=== PATIENT | male | born 1965 | race Caucasian/White ===

== ENCOUNTER 2016-10-08 10:43 | Inpatient (IN) | payer BC ==
[2016-10-04 10:24] LABS: BASOPHILS 0.6 %; BASOPHILS ABSOLUTE 0.06 10/3/uL (0.0-0.16); EOSINOPHILS 1.9 %; EOSINOPHILS ABSOLUTE 0.18 10/3/uL (0.0-0.53); HEMATOCRIT 49.8 % (40.0-51.0); HEMOGLOBIN 17.1 g/dL (13.6-17.8); IMMATURE GRANULOCYTES 0.7 %; IMMATURE GRANULOCYTES ABSOLUTE 0.07 10/3/uL (0.0-0.11); LYMPHOCYTES 30.5 %; LYMPHOCYTES ABSOLUTE 2.96 10/3/uL (0.67-4.30); MEAN CORPUS HGB CONC 34.3 g/dL (32.0-36.0); MEAN CORPUSCULAR HEMOGLOB 31.5 pg (26.0-34.0); MEAN CORPUSCULAR VOLUME 91.7 fL (80-100); MEAN PLATELET VOLUME 9.5 fL (9.2-13.0); MONOCYTES 8.8 %; MONOCYTES ABSOLUTE 0.86 10/3/uL (0.21-1.20); NEUTROPHILS 57.5 %; NEUTROPHILS ABSOLUTE 5.59 10/3/uL (2.02-8.40); PLATELET COUNT 261 10/3/uL (150-400); RBC DISTRIBUTION WIDTH 13.3 % (12.0-16.0); RED CELL COUNT 5.43 10/6/uL (4.7-6.1); WHITE BLOOD CELLS 9.7 10/3/uL (4.5-10.5)
[2016-10-04 10:29] LABS: MANUAL DIFF NO %
[2016-10-04 10:30] LABS: INTERNATIONAL NORMAL RATI 2.9 UNITS (-); PROTIME (NOT ORD) 30.2 SEC (12.0-14.5)
[2016-10-04 10:33] LABS: BUN (BLOOD UREA NITROGEN) 17 MG/DL (6-23); CALCIUM, SERUM 8.9 MG/DL (8.5-10.4); CHLORIDE, SERUM 104 MMOL/L (96-112); CO2 (CARBON DIOXIDE) 29 MMOL/L (24-34); CREATININE 1.24 MG/DL (0.70-1.30); GFR AFRICAN AMERICAN 78 ML/MIN (>=60); GFR NON AFRICAN AMERICAN 67 ML/MIN (>=60); GLUCOSE, SERUM 89 MG/DL (60-99); POTASSIUM, SERUM 3.2 MMOL/L (3.5-5.3); SODIUM, SERUM 140 MMOL/L (135-148)
--- NOTE | ~2016-10-08 | OP ---
Record Of Operation [facility] [address] [place]. 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 POSTPROCEDURE DIAGNOSIS: A 95% recurrent stenosis of right internal carotid artery. PROCEDURES PERFORMED: 1. Arch aortogram with right common carotid artery catheterization and angiography. 2. Right internal carotid artery distal embolic protection filter 5 mm. 3. Primary right internal carotid artery/common carotid artery stent, 7 x 30 Cordis Precise. 4. Post-stent angioplasty 4 x 2 balloon dilating to 4.0 mm. ANESTHESIA: Local with MAC. COMPLICATIONS: None. INDICATION FOR PROCEDURE: Secondary to this very pleasant 50-year-old gentleman status post right CEA a little over than 6 months ago with recurrent stenosis and symptoms consistent with amaurosis fugax, recommendations were made for carotid artery arteriogram with possible endovascular repair. Risks and benefits were discussed. Consent was obtained. DETAILS OF PROCEDURE: The patient was brought to the endovascular operating room, placed in supine position, and prepped and draped in routine sterile fashion with attention to the bilateral groin. The right femoral artery was interrogated with ultrasound and found to be compressible. A needle was passed into this artery under direct ultrasound vision. A picture was then taken and placed on the chart. Next, a wire was passed into the aorta followed by 6-Peruvian sheath. A universal flush catheter was advanced to the level of the arch and an arch arteriogram was then performed. This showed evidence of patent innominate, right common carotid artery with sluggish flow and left common carotid artery as well as left subclavian. The innominate was then cannulated with a Berenstein catheter followed by cannulation of the common carotid artery on the right. Arteriogram in the WEI position showed evidence of a critical 95% stenosis of the proximal internal carotid artery. 5000 units of heparin were given and allowed to circulate. A distal embolic protection filter was then passed through this stenosis and then a primary 7 x 30 Cordis Precise stent was then passed into position and deployed into the internal and all the way into the common carotid artery. Post stent deployment, angioplasty was performed with a 4 x 2 balloon dilating to 4.0 mm. Completion imaging showed wide patency of the common and internal carotid artery distally, however, there was spasm. 600 mg of nitroglycerin was given over time, which broke the spasm and decreased flow into the carotid system. No evidence of dissection or complication noted. Filter was removed and found to be negative and no debris noted. With this completed, wires, catheters, and sheaths were then removed. The right groin was then closed with an Angio-Seal. The patient tolerated this procedure well. Neurologically intact at the end of the procedure. Record Of Operation [facility] [address] [place]. [address] NAME: DILMA HERRERA : 65 STATUS : ADM IN [facility]#: [id number] AGE: 50 ADM/REG DATE : 10/08/16 MR#: [id number] REPORT SERV DATE: 10/08/16 DICTATED BY: REED BAXTER DATE: 10/08/16 REPORT STATUS : Draft TRANSCRIBED BY: AMBROSIO DATE: 10/08/16 CL/AMBROSIO Reed Baxter M.D. / [id number] CC: Frank Garcia M.D.
[~2016-10-08 10:43] MED LIST: ACCU10 PO; COUMADIN10 MG PO; CRESTOR20 MG PO; HYZAAR 50/12.51 TAB PO; LIPITOR10 PO; LOPID6 PO; NEUR300 PO; NORVIR100 PO; PREZCOBIX PO; PREZISTA400 MG PO; TRUVADA PO; WELLSR100 PO; X5 PO; [UNRECOGNIZED DRUG - OTHER] PO
[2016-10-08 11:22] LABS: INTERNATIONAL NORMAL RATI 1.1 UNITS (-)
[2016-10-08 11:33] LABS: PROTIME (NOT ORD) 14.2 SEC (12.0-14.5)
[2016-10-08 21:09] LABS: BASOPHILS 0.5 %; BASOPHILS ABSOLUTE 0.06 10/3/uL (0.0-0.16); EOSINOPHILS 2.6 %; EOSINOPHILS ABSOLUTE 0.28 10/3/uL (0.0-0.53); HEMOGLOBIN 14.6 g/dL (13.6-17.8); IMMATURE GRANULOCYTES 0.6 %; IMMATURE GRANULOCYTES ABSOLUTE 0.07 10/3/uL (0.0-0.11); LYMPHOCYTES 36.7 %; LYMPHOCYTES ABSOLUTE 4.02 10/3/uL (0.67-4.30); MEAN CORPUS HGB CONC 34.2 g/dL (32.0-36.0); MEAN CORPUSCULAR HEMOGLOB 31.1 pg (26.0-34.0); MEAN CORPUSCULAR VOLUME 90.9 fL (80-100); MEAN PLATELET VOLUME 9.2 fL (9.2-13.0); MONOCYTES 8.2 %; NEUTROPHILS 51.4 %; NEUTROPHILS ABSOLUTE 5.61 10/3/uL (2.02-8.40); PLATELET COUNT 235 10/3/uL (150-400); RBC DISTRIBUTION WIDTH 13.3 % (12.0-16.0); WHITE BLOOD CELLS 10.9 10/3/uL (4.5-10.5)
[2016-10-08 21:12] LABS: HEMATOCRIT 42.7 % (40.0-51.0); MANUAL DIFF NO %
[2016-10-08 21:20] LABS: BUN (BLOOD UREA NITROGEN) 14 MG/DL (6-23); CHLORIDE, SERUM 110 MMOL/L (96-112); CO2 (CARBON DIOXIDE) 26 MMOL/L (24-34); CREATININE 1.16 MG/DL (0.70-1.30); GFR AFRICAN AMERICAN 85 ML/MIN (>=60); GFR NON AFRICAN AMERICAN 73 ML/MIN (>=60); GLUCOSE, SERUM 105 MG/DL (60-99); POTASSIUM, SERUM 3.7 MMOL/L (3.5-5.3); SODIUM, SERUM 143 MMOL/L (135-148)
[2016-10-09 03:52] LABS: BASOPHILS 0.3 %; BASOPHILS ABSOLUTE 0.03 10/3/uL (0.0-0.16); EOSINOPHILS 2.5 %; EOSINOPHILS ABSOLUTE 0.27 10/3/uL (0.0-0.53); HEMATOCRIT 42.8 % (40.0-51.0); HEMOGLOBIN 14.3 g/dL (13.6-17.8); IMMATURE GRANULOCYTES 0.5 %; IMMATURE GRANULOCYTES ABSOLUTE 0.05 10/3/uL (0.0-0.11); LYMPHOCYTES 29.7 %; LYMPHOCYTES ABSOLUTE 3.19 10/3/uL (0.67-4.30); MANUAL DIFF NO %; MEAN CORPUS HGB CONC 33.4 g/dL (32.0-36.0); MEAN CORPUSCULAR VOLUME 92.6 fL (80-100); MEAN PLATELET VOLUME 9.3 fL (9.2-13.0); MONOCYTES 8.7 %; MONOCYTES ABSOLUTE 0.93 10/3/uL (0.21-1.20); NEUTROPHILS 58.3 %; NEUTROPHILS ABSOLUTE 6.27 10/3/uL (2.02-8.40); PLATELET COUNT 253 10/3/uL (150-400); RBC DISTRIBUTION WIDTH 13.4 % (12.0-16.0); RED CELL COUNT 4.62 10/6/uL (4.7-6.1); WHITE BLOOD CELLS 10.7 10/3/uL (4.5-10.5)
[2016-10-09 04:13] LABS: BUN (BLOOD UREA NITROGEN) 14 MG/DL (6-23); CHLORIDE, SERUM 110 MMOL/L (96-112); CO2 (CARBON DIOXIDE) 26 MMOL/L (24-34); CREATININE 1.08 MG/DL (0.70-1.30); GFR AFRICAN AMERICAN 92 ML/MIN (>=60); GFR NON AFRICAN AMERICAN 80 ML/MIN (>=60); GLUCOSE, SERUM 113 MG/DL (60-99); POTASSIUM, SERUM 4.2 MMOL/L (3.5-5.3); SODIUM, SERUM 143 MMOL/L (135-148)
[2016-10-09 06:06] LABS: INTERNATIONAL NORMAL RATI 1.1 UNITS (-); PROTIME (NOT ORD) 14.3 SEC (12.0-14.5)
[2016-10-09] MEDS ORDERED: PLAVIX PO (09:47)
[2016-10-09] MEDS ORDERED: PCET PO (09:47)
== END 2016-10-09 13:12 | disposition home or self-care (01) | DRG 36 ==
LOC: SDC 10:43 → CVICU 14:40
PROVIDERS: Specialist
PROC: 037K3DZ Dilation of Right Internal Carotid Artery with Intraluminal Device, Percutaneous Approach (ICD-10-PCS; principal; 2016-10-08 14:00)
DX: I65.21 Occlusion and stenosis of right carotid artery (principal); I10 Essential (primary) hypertension; Z79.899 Other long term (current) drug therapy; Z79.82 Long term (current) use of aspirin; E78.00 Pure hypercholesterolemia, unspecified; I73.9 Peripheral vascular disease, unspecified; F41.9 Anxiety disorder, unspecified; Z21 Asymptomatic human immunodeficiency virus [HIV] infection status; F17.210 Nicotine dependence, cigarettes, uncomplicated; Z83.3 Family history of diabetes mellitus; Z82.49 Family history of ischemic heart disease and other diseases of the circulatory system
CPT/HCPCS: 36221; 37215; 71020; 76937; 80048; 83735; 85025; 85610; 93005; A9270-GY; C1725; C1760; C1769; C1876; C1884; C1894; J0690; J2250; J2370; J2405; J3010; Q9966